=== PATIENT | male | born 1955 | race Caucasian/White ===

== ENCOUNTER 2019-09-24 10:15 | Inpatient (IN) | payer MEDICAID ==
[~2019-09-24] VITALS: Ht 195.6 cm; Wt 75.3 kg
[2019-09-24] MEDS ORDERED: MORPHINE SULFATE 4 MG/ML CPJ (NOT FOR IM USE) IV STA (10:42)
[2019-09-24] MEDS ORDERED: ONDANSETRON HCL 4MG/2ML INJ IV STA (10:42)
[2019-09-24] MEDS ORDERED: SODIUM CHLORIDE 0.9% 1000ML BAG (SEPSIS BOLUS) IV ONE (10:45)
[2019-09-24 11:35] LABS: HEMATOCRIT. 39.7 % (42.0-52.0); MEAN CORPUSCULAR HEMOGLOBIN 32.5 pg (28.0-32.0); MEAN CORPUSCULAR VOLUME 92.3 fL (80.0-94.0); MEAN PLATELET VOLUME 10.3 fl (7.4-10.4); PLATELET 157 x1000/uL (130-400); RED CELL DISTRIBUTION WIDTH 12.8 % (11.6-14.6)
[2019-09-24 11:41] LABS: CHLORIDE 96 mEq/L (98-107); PROTHROMBIN TIME 10.6 sec (9.6-11.0)
[2019-09-24] MEDS ORDERED: VANCOMYCIN 1 G PREMIX 200 ML IV ONE (11:45)
[2019-09-24] MEDS ORDERED: PIPERACILLIN/TAZ 3.375G PREMIX 50 ML IV ONE (11:45)
[2019-09-24 11:54] LABS: CLARITY URINE CLEAR (CLEAR); COLOR URINE DARK YELLOW (YELLOW); KETONES URINE 1+ (NEGATIVE); LEUKOCYTE ESTERASE URINE NEGATIVE (NEGATIVE); NITRITE URINE NEGATIVE (NEGATIVE); OCCULT BLOOD URINE NEGATIVE (NEGATIVE); PROTEIN URINE TRACE (NEGATIVE); SPECIFIC GRAVITY URINE 1.033 (1.005-1.030)
[2019-09-24] MEDS ORDERED: ACETAMINOPHEN 500MG TABLET PO ONE (12:30)
[2019-09-24 12:32] LABS: PLATELET ESTIMATE NORMAL
[2019-09-24] MEDS ORDERED: ONDANSETRON HCL 4MG/2ML INJ IV PRN (13:30)
[2019-09-24] MEDS ORDERED: ACETAMINOPHEN 325MG TABLET PO PRN (13:30)
[2019-09-24] MEDS ORDERED: IPRATROPIUM/ALBUTEROL 0.5-3(2.5)MG/3ML NEB HHN PRN (13:30)
[2019-09-24] MEDS ORDERED: DEXTROSE 50% WATER 50ML SYRINGE IV PRN (13:30)
[2019-09-24] MEDS ORDERED: POTASSIUM CHLORIDE 20MEQ TABLET SR PO NR (13:56)
[2019-09-24] MEDS ORDERED: LEVOFLOXACIN 750MG PREMIX 150 ML IV SCH (14:00)
[2019-09-24 14:54] LABS: *AMPHETAMINES SCREEN URINE NEGATIVE (NEGATIVE); *BARBITURATES SCREEN URINE NEGATIVE (NEGATIVE)
[2019-09-24 14:55] LABS: *BENZODIAZEPINES SCREEN URINE NEGATIVE (NEGATIVE); *COCAINE SCREEN URINE NEGATIVE (NEGATIVE); CANNABINOID URINE SCREEN NEGATIVE (NEGATIVE); METHADONE URINE SCREEN NEGATIVE (NEGATIVE); PHENCYCLIDINE URINE SCREEN NEGATIVE (NEGATIVE)
[2019-09-24 14:58] LABS: OPIATES URINE SCREEN PRESUMTIVE POSITIVE (NEGATIVE)
[2019-09-24 15:35] VITALS: BP 112/71
[2019-09-24] MEDS ORDERED: DOCU50CA13 PO (16:40)
[2019-09-24] MEDS ORDERED: GLIP10TA10 PO (16:40)
[2019-09-24] MEDS ORDERED: LORA10TA7 PO (16:40)
[2019-09-24] MEDS ORDERED: INSU100I28 SQ (16:40)
[2019-09-24] MEDS ORDERED: SITA100T11 PO (16:40)
[2019-09-24] MEDS ORDERED: VALS320T2 PO (16:40)
[2019-09-24] MEDS ORDERED: ASPI-1393 PO (16:40)
[2019-09-24] MEDS ORDERED: OMEP20TA2 PO (16:40)
[2019-09-24] MEDS ORDERED: AMLO10TA4 PO (16:40)
[2019-09-24] MEDS: BLOOD SUGAR DIAGNOSTIC STRIP TEST SCH ×2 (17:43→20:25)
[2019-09-24] MEDS: KETOROLAC 30MG/ML VIAL IV PRN (17:54)
[2019-09-24] MEDS: INSULIN LISPRO 100 UNITS/ML SUBCUT SCH ×2 (18:01→20:28)
[2019-09-24 19:04] LABS: CARCINO EMBRYONIC ANTIGEN 2.1 ng/ml
[2019-09-24 19:15] LABS: HEPATITIS B SURFACE ANTIGEN NEGATIVE
[2019-09-24 19:45] LABS: HEPATITIS A AB IGM NEGATIVE (NEGATIVE)
[2019-09-24 20:00] VITALS: BP 91/67
[2019-09-24] MEDS: IPRATROPIUM/ALBUTEROL 0.5-3(2.5)MG/3ML NEB HHN SCH (21:39)
[2019-09-24] MEDS ORDERED: INSULIN GLARGINE UD 100 UNITS/ML SYR SUBCUT SCH (22:00)
[2019-09-24] MEDS: INSULIN GLARGINE UD 100 UNITS/ML SYR SUBCUT SCH (23:38)
[2019-09-25] VITALS: BP 101/65
[2019-09-25] MEDS: IPRATROPIUM/ALBUTEROL 0.5-3(2.5)MG/3ML NEB HHN SCH ×6 (01:15→19:56)
[2019-09-25] MEDS: KETOROLAC 30MG/ML VIAL IV PRN (02:42)
[2019-09-25 04:00] VITALS: BP 98/58
[2019-09-25] MEDS: BLOOD SUGAR DIAGNOSTIC STRIP TEST SCH ×4 (05:54→21:57)
[2019-09-25 07:33] LABS: HEMATOCRIT. 32.4 % (42.0-52.0); HEMOGLOBIN. 11.5 g/dL (14.0-18.0); MEAN CORPUSCULAR HEMOGLOBIN 32.7 pg (28.0-32.0); MEAN CORPUSCULAR VOLUME 91.8 fL (80.0-94.0); MEAN PLATELET VOLUME 10.1 fl (7.4-10.4); PLATELET 121 x1000/uL (130-400); RED BLOOD CELL COUNT 3.53 mill/uL (4.7-6.1); RED CELL DISTRIBUTION WIDTH 12.5 % (11.6-14.6)
[2019-09-25 08:00] VITALS: BP 114/67
[2019-09-25] MEDS: INSULIN LISPRO 100 UNITS/ML SUBCUT SCH ×4 (08:40→21:00)
[2019-09-25] MEDS: INSULIN GLARGINE UD 100 UNITS/ML SYR SUBCUT SCH ×2 (10:12→21:58)
[2019-09-25] MEDS ORDERED: SODIUM CHLORIDE 10% FOR INH 15ML VIAL NEB INH SCH (11:30)
[2019-09-25 12:00] VITALS: BP 126/74
[2019-09-25] MEDS ORDERED: FLUT1DIS3 INH (12:20)
[2019-09-25] MEDS ORDERED: HYDR-4001 MT (12:20)
[2019-09-25] MEDS ORDERED: LEVO750T21 MT (12:20)
[2019-09-25] MEDS ORDERED: ALBU18HF2 IH (12:20)
[2019-09-25 16:00] VITALS: BP 120/74
[2019-09-25] MEDS: LEVOFLOXACIN 750MG PREMIX 150 ML IV SCH (16:17)
[2019-09-25 17:43] LABS: PLATELET ESTIMATE DECREASED
[2019-09-25] MEDS: HYDROCODONE/ACETAMINOPHEN 5/325MG TABLET PO PRN (17:59)
[2019-09-25 20:00] VITALS: BP 108/66
[2019-09-26] VITALS: BP 114/63
[2019-09-26] MEDS: IPRATROPIUM/ALBUTEROL 0.5-3(2.5)MG/3ML NEB HHN SCH ×4 (00:34→11:51)
[2019-09-26] MEDS: HYDROCODONE/ACETAMINOPHEN 5/325MG TABLET PO PRN (00:40)
[2019-09-26 04:00] VITALS: BP 140/65
[2019-09-26 06:07] LABS: CANCER ANTIGEN 125 8.9 U/mL (Not Estab.)
[2019-09-26] MEDS: BLOOD SUGAR DIAGNOSTIC STRIP TEST SCH ×2 (06:15→13:01)
[2019-09-26 08:00] VITALS: BP 113/68
[2019-09-26] MEDS: INSULIN LISPRO 100 UNITS/ML SUBCUT SCH ×2 (08:01→13:28)
[2019-09-26] MEDS: INSULIN GLARGINE UD 100 UNITS/ML SYR SUBCUT SCH (09:45)
[2019-09-26 12:00] VITALS: BP 91/61
[2019-09-26] MEDS: LEVOFLOXACIN 750MG PREMIX 150 ML IV SCH (13:01)
[2019-09-26 14:15] VITALS: BP 107/64
[2019-09-27] MEDS ORDERED: LEVOFLOXACIN 250MG TABLET PO SCH (11:00)
== END 2019-09-26 15:21 | disposition home or self-care (01) | DRG 720 ==
LOC: ER 10:30 → 7WST 13:08 → EDBEDREQ 13:11 → EDBEDREQSVC 13:11 → EDBEDREQ 13:12 → ENRESERV 13:50
PROVIDERS: ADMIT Internal Medicine; ATTEND Internal Medicine
DX: A41.9 Sepsis, unspecified organism (principal); J96.20 Acute and chronic respiratory failure, unspecified whether with hypoxia or hypercapnia; J18.1 Lobar pneumonia, unspecified organism; E87.8 Other disorders of electrolyte and fluid balance, not elsewhere classified; C34.90 Malignant neoplasm of unspecified part of unspecified bronchus or lung; M94.0 Chondrocostal junction syndrome [Tietze]; I20.9 Angina pectoris, unspecified; E87.6 Hypokalemia; E87.1 Hypo-osmolality and hyponatremia; E11.65 Type 2 diabetes mellitus with hyperglycemia; J43.2 Centrilobular emphysema; I10 Essential (primary) hypertension; I25.2 Old myocardial infarction; Z87.891 Personal history of nicotine dependence; Z79.4 Long term (current) use of insulin; Z79.899 Other long term (current) drug therapy; Z79.82 Long term (current) use of aspirin
CPT/HCPCS: 36415; 71045; 80048; 80305; 81003; 82105; 82378; 82962; 83036; 83605; 84145; 84484; 86300; 86304; 86705; 86709; 86803; 87070; 87340; 87804; 93005; 93970; 96365; 96366; 96368; 96375; 99285; J1815; J1885; J1956; J2270; J2405; J2543; J3370; J7030; J7040; J7131; J7620

== ENCOUNTER 2022-12-01 08:41 | Emergency (ER) | payer MEDICARE, OTHER ==
[~2022-12-01] VITALS: Ht 193 cm; Wt 76.0 kg
[~2022-12-01 08:41] MED LIST: ALBU18HF2 IH; AMLO10TA4 PO; ASPI-1497 PO; DOCU50CA13 PO; FLUT1DIS3 INH; GLIP10TA10 PO; HYDR-4001 MT; INSU100I28 SQ; LEVO750T21 MT; LORA10TA7 PO; OMEP20TA23 PO; SITA100T11 PO; VALS320T2 PO
[2022-12-01 08:59] VITALS: BP 113/81
== END 2022-12-01 12:48 | disposition left against medical advice (07) ==
LOC: ER 08:41
DX: Z53.21 Procedure and treatment not carried out due to patient leaving prior to being seen by health care provider (principal)

== ENCOUNTER 2025-04-20 05:12 | Inpatient (IN) | payer MEDICARE, MEDICAID ==
[~2025-04-20] VITALS: Ht 194.3 cm; Wt 66.7 kg
[~2025-04-20 05:12] MED LIST changes: -ALBU18HF2 IH; +AMLO-905 PO; -AMLO10TA4 PO; +APIX5TAB PO; +ATOR10TA69 PO; +CETI10TA6 PO; -DOCU50CA13 PO; +EMPA10TA PO; +FINE10TA PO; -FLUT1DIS3 INH; -GLIP10TA10 PO; -HYDR-4001 MT; -INSU100I28 SQ; -LEVO750T21 MT; -LORA10TA7 PO; +METF-416 PO; +MULT-1318 PO; -SITA100T11 PO; +SOTA80TA PO
[2025-04-20] MEDS: SODIUM CHLORIDE 0.45% 500 ML IV ONE (06:25)
[2025-04-20] MEDS ORDERED: HEPARIN 1000 UNITS/ML 10ML ONE (08:01)
[2025-04-20] MEDS ORDERED: FENTANYL CITRATE/PF 50MCG/ML 2ML VIAL ONE (08:01)
[2025-04-20] MEDS ORDERED: IODIXANOL 320 MG/ML 150ML BOTTLE IV ONE (08:01)
[2025-04-20] MEDS ORDERED: MIDAZOLAM HCL 2 MG/2 ML VIAL ONE (08:01)
[2025-04-20] MEDS ORDERED: LIDOCAINE HCL 1% 20ML VIAL ONE (08:02)
[2025-04-20] MEDS ORDERED: EPINEPHRINE 0.1MG/ML (1:10,000) 10ML SYR ONE (08:03)
[2025-04-20] MEDS ORDERED: ATROPINE SULFATE 1MG/10ML SYR ONE (08:03)
[2025-04-20] MEDS ORDERED: DIPHENHYDRAMINE 50MG/ML VIAL ONE (08:51)
[2025-04-20] MEDS ORDERED: METHYLPREDNISOLONE SOD SUCC 125MG/2ML (ACT-O-VIAL) ONE (08:52)
[2025-04-20] MEDS ORDERED: FAMOTIDINE 20MG/2ML VIAL IV ONE (08:52)
[2025-04-20] MEDS ORDERED: CLOPIDOGREL 75MG TABLET ONE (10:01)
[2025-04-20] MEDS ORDERED: ASPIRIN 325MG TABLET ONE (10:10)
[2025-04-20 11:13] VITALS: BP 146/78; PULSE 62; RESP 12; TEMP 36.9
[2025-04-20 12:00] VITALS: BP 141/81; PULSE 61; RESP 15; TEMP 36.3; O2SAT 99
[2025-04-20 13:32] LABS: HEPATITIS B SURFACE ANTIGEN NEGATIVE (Negative)
[2025-04-20 13:42] LABS: HEPATITIS C AB NON REACTIVE (Neg) (Negative)
[2025-04-20] MEDS ORDERED: HYDROCODONE/ACETAMINOPHEN 5/325MG TABLET PO PRN (15:30)
[2025-04-20] MEDS ORDERED: NALOXONE HCL 0.4MG/ML VIAL IV PRN (15:30)
[2025-04-20] MEDS ORDERED: DEXTROSE 50% WATER 50ML SYRINGE IV PRN (15:30)
[2025-04-20] MEDS: HYDROCODONE/ACETAMINOPHEN 5/325MG TABLET PO SCH (15:33)
[2025-04-20 16:00] VITALS: BP 138/80; PULSE 64; RESP 11; TEMP 36.6; O2SAT 100
[2025-04-20] MEDS: BLOOD SUGAR DIAGNOSTIC STRIP TEST SCH (16:36)
[2025-04-20] MEDS: METFORMIN HCL 500MG TABLET PO SCH (17:20)
[2025-04-20] MEDS: INSULIN LISPRO 100 UNITS/ML SUBCUT SCH (17:34)
[2025-04-20 20:00] VITALS: BP 117/80; PULSE 66; RESP 12; TEMP 36.4; O2SAT 99
[2025-04-20] MEDS: ATORVASTATIN CALCIUM 10MG TABLET PO SCH (21:00)
[2025-04-20] MEDS: AMLODIPINE 5MG TABLET PO SCH (21:00)
[2025-04-21] VITALS: BP 144/95; PULSE 69; RESP 16; TEMP 36.5; O2SAT 99
[2025-04-21 04:00] VITALS: BP 134/83; PULSE 63; RESP 17; TEMP 36.4; O2SAT 99
[2025-04-21 08:00] VITALS: BP 135/95; PULSE 54; RESP 13; TEMP 36.7; O2SAT 97
[2025-04-21] MEDS: CLOPIDOGREL 75MG TABLET PO SCH (08:05)
[2025-04-21] MEDS: EMPAGLIFLOZIN 10MG TABLET PO SCH (08:05)
[2025-04-21] MEDS: SOTALOL HCL 80MG TABLET PO SCH (08:05)
[2025-04-21] MEDS: MULTIVITAMINS,THER W-MINERALS TABLET PO SCH (08:05)
[2025-04-21] MEDS: ASPIRIN 81MG EC TABLET PO SCH (08:05)
[2025-04-21] MEDS: CETIRIZINE 10MG TABLET PO SCH (08:06)
[2025-04-21 08:29] LABS: HEMATOCRIT. 32.2 % (42.0-52.0); HEMOGLOBIN. 11.1 g/dL (14.0-18.0); MEAN CORPUSCULAR HEMOGLOBIN 32.7 pg (28.0-32.0); MEAN CORPUSCULAR HGB CONC 34.6 g/dL (31.0-37.0); MEAN CORPUSCULAR VOLUME 94.5 fL (80.0-94.0); MEAN PLATELET VOLUME 9.1 fl (7.4-10.4); PLATELET 166 x1000/uL (130-400); POTASSIUM 4.1 mEq/L (3.5-5.1); RED CELL DISTRIBUTION WIDTH 13.4 % (11.6-14.6); WHITE BLOOD COUNT 13.4 x1000/uL (4.5-11.0)
[2025-04-21 08:30] LABS: CALCIUM 8.3 mg/dL (8.7-10.4)
[2025-04-21 08:35] LABS: CREATININE 1.3 mg/dL (0.6-1.3)
[2025-04-21 08:39] LABS: DIFFERENTIAL COMMENT 1
[2025-04-21] MEDS ORDERED: ASPIRIN 81MG EC TABLET PO SCH (09:00)
[2025-04-21 12:00] VITALS: BP 135/87; PULSE 60; RESP 14; TEMP 36.5; O2SAT 96
[2025-04-21 12:39] LABS: PLATELET ESTIMATE NORMAL
[2025-04-21 13:12] VITALS: BP 135/87; PULSE 60; TEMP 97.7; O2SAT 96
== END 2025-04-21 14:37 | disposition home health service (06) | DRG 321 ==
LOC: CCL 05:12 → 3WST 05:13
PROVIDERS: ADMIT Specialist; ATTEND Specialist
PROC: 027237Z Dilation of Coronary Artery, Three Arteries with Four or More Drug-eluting Intraluminal Devices, Percutaneous Approach (ICD-10-PCS; principal; 2025-04-20)
PROC: 4A023N7 Measurement of Cardiac Sampling and Pressure, Left Heart, Percutaneous Approach (ICD-10-PCS; 2025-04-20)
PROC: B211YZZ Fluoroscopy of Multiple Coronary Arteries using Other Contrast (ICD-10-PCS; 2025-04-20)
PROC: B215YZZ Fluoroscopy of Left Heart using Other Contrast (ICD-10-PCS; 2025-04-20)
DX: I25.10 Atherosclerotic heart disease of native coronary artery without angina pectoris (principal); J43.9 Emphysema, unspecified; N18.2 Chronic kidney disease, stage 2 (mild); I12.9 Hypertensive chronic kidney disease with stage 1 through stage 4 chronic kidney disease, or unspecified chronic kidney disease; E78.5 Hyperlipidemia, unspecified; I48.91 Unspecified atrial fibrillation; E11.22 Type 2 diabetes mellitus with diabetic chronic kidney disease; F17.210 Nicotine dependence, cigarettes, uncomplicated; Z87.01 Personal history of pneumonia (recurrent); Z88.0 Allergy status to penicillin; I25.2 Old myocardial infarction; Z79.01 Long term (current) use of anticoagulants; Z79.82 Long term (current) use of aspirin; Z79.899 Other long term (current) drug therapy; Z82.49 Family history of ischemic heart disease and other diseases of the circulatory system; Z91.041 Radiographic dye allergy status; Z95.5 Presence of coronary angioplasty implant and graft
CPT/HCPCS: 36415; 80048; 82962; 85025; 85347; 86705; 87340; 92928; 92929; 93005; 93458; A4606; C1769; C1874; C1887; C1893; J0461; J1200; J1644; J1815; J2250; J2919; J3010; J3490; Q9967